=== PATIENT | male | born 1955 | race Caucasian/White ===

== ENCOUNTER → 2016-10-03 | Outpatient (CLI) | payer OTHER ==
[~2016-10-03] MED LIST: ALEVE220 MG PO; AMITRIPTYLINE H10 M3 PO; ASPIRIN325 PO; DEPO-TESTO100 MG/1 M IM; HYDROCHLOROTHIA25 M2 PO; HYTRIN 5 M5 MG/1 CAP PO; MUCINEX TA600 MG/TA2 PO; NORVASC5 MG PO; PRADAXA150 MG PO; SORINE 80 MG TA80 M1 PO; TYLENOL325 MG PO; VERAPAMIL SR240 MG PO
[2016-10-03 09:23] LABS: HEMATOCRIT 46.8 % (42.0-52.0); MCH 30.8 pg (26.0-34.0); MCHC 34.3 % (28.0-37.0); MCV 89.7 fL (80.0-100.0); RBC 5.21 mil/uL (4.50-6.00); RDW 14.5 % (10.5-14.5)
[2016-10-03 09:34] LABS: ANION GAP 10 mmol/L (7-16); BUN 19 mg/dL (7-18); CALCIUM 9.4 mg/dL (8.5-10.1); CHLORIDE 105 mmol/L (98-107); CO2 31 mmol/L (21-32); GLUCOSE 108 mg/dL (70-99); POTASSIUM 4.4 mmol/L (3.5-5.1); SODIUM 146 mmol/L (136-145)
[2016-10-03 09:37] LABS: ALBUMIN 4.3 g/dL (3.4-5.0); ALKALINE PHOSPHATASE 87 U/L (46-116); SGOT < 5 U/L (15-37); SGPT 40 U/L (30-65); TOTAL BILIRUBIN 0.5 mg/dL (<0.1-1.0); TOTAL PROTEIN 7.6 g/dL (6.4-8.2)
== END ==
LOC: CAT 08:54
PROVIDERS: Internal Medicine Cardiovascular Disease
DX: I48.91 Unspecified atrial fibrillation (principal)

== ENCOUNTER 2016-10-07 06:35 | Observation (INO) | payer OTHER ==
[~2016-10-07] VITALS: Ht 185.4 cm; Wt 160.4 kg
--- NOTE | ~2016-10-07 | H ---
[facility] [address] [address] HISTORY AND PHYSICAL Name: JULIETH BATISTA Room #: 214-P [facility] Elliot Cisneros#: [id number] Admission: 10/07/16 Attend Phys: Tera Mckeon MD Discharge: 10/08/16 Date of : 59 Report #: [id number] THIS REPORT FOR: //name// For History and Physical, please see office documentation/handwritten note in the patient's medical record. <ELECTRONICALLY SIGNED> By: Tera Mckeon MD 10/10/16 1054 1532 Tera Mckeon MD /jr
--- NOTE | ~2016-10-07 | P ---
[facility] [place] [address] PROCEDURE REPORT Name: JULIETH BATISTA Room #: 214-P [facility] Elliot Cisneros#: [id number] Admission: 10/07/16 Attend Phys: Tera Mckeon MD Discharge: 10/08/16 Date of : 59 Report #: [id number] THIS REPORT FOR: //name// CC: Rene Mckeon DATE OF SERVICE: 10/07/2016 PREOPERATIVE DIAGNOSIS: Paroxysmal atrial fibrillation. POSTOPERATIVE DIAGNOSES: 1. Paroxysmal atrial fibrillation. 2. Typical atrioventricular ronald reentrant tachycardia. PROCEDURE: SVT ablation. HISTORY: The patient is a 60-year-old with a history of obesity, hypertension who has had episode of atrial fibrillation, continues to have palpitations despite sotalol therapy. He is here for AFib ablation. ANESTHESIA: The patient underwent general anesthesia with no anesthesia related complications. DESCRIPTION OF PROCEDURE: The patient underwent informed consent. We discussed the details of the procedure including the risks, which include but are not limited to bleeding, infection, vascular damage, cardiac perforation as well as damage to the bad river band conduction system as well as stroke or PR. He understood these risks and was willing to proceed. The patient was brought to the EP laboratory in a fasting and nonsedated state and prepped and draped in a sterile fashion. Next, I injected 7 mL of lidocaine to the right groin region, obtained access to the right femoral vein times 3. I placed an 8-Macedonian, 9-Macedonian and 7-Macedonian short sheath. Under fluoroscopic guidance, I placed a decapolar catheter easily in the coronary sinus, however, this would fall out frequently, but eventually I was able to seat it nicely in the coronary sinus. Next, an intracardiac ultrasound catheter was placed into the right atrium. Next, I started taking images of the left atrium and the interatrial septum. Upon visualizing the interatrial septum, there was evidence of significant interatrial lipomatous hypertrophy. The septum was very very thick. There was a small thin area at the superior limbus , which was probably about 5 mm in size that was right at the junction at the roof of the left atrium. Next, the patient was systemically heparinized and I took an SL1 sheath and a [place] needle and attempted several sites to perform transseptal. Looking at this superior thin segment, I felt that this was going to result in a transseptal that could potentially result in me perforating the roof of the left atrium. I therefore looked for other regions along the superior third to middle [address] [address] PROCEDURE REPORT Name: LYNNEBENNIEJULIETH Daria Room #: 214-P [facility] Elliot Cisneros#: [id number] Admission: 10/07/16 Attend Phys: Tera Mckeon MD Discharge: 10/08/16 Date of : 59 Report #: [id number] third of the interatrial septum. At this site, I was able to cross with the [place] needle. However, I could not advance my SL1 sheath over a guidewire. Several more attempts were made and eventually I was able to cross with the dye later and my transseptal sheath was hooked at the groin and slightly across into the left atrium. Because of this, optimally placing my wire into one of the left-sided pulmonary veins was somewhat challenging. Eventually, I was able to get the guidewire to go into the left inferior pulmonary vein. I then exchanged my SL1 sheath for the cryo sheath. Several attempts were made to take the cryo sheath across this transseptal site. However, due to the thickness of the septum and due to the fact that the cryo sheath wanted to go at more of a superior direction, I was not able to cross the septum. I made multiple attempts and I felt with the guidewire in the left inferior, thus gave me the best approach, but unfortunately this was not working out. As such, I pulled my cryo sheath below the level of the heart. At this point, I decided to abandon performing an AFib ablation, but I decided to perform a basic EP study to see if there was any inducible atrial flutter or other arrhythmias that could serve as a cause of his atrial fibrillation. At baseline prior to the AFib ablation, the patient was in sinus rhythm with a sinus cycle length of 1020 milliseconds, AZ interval 133 milliseconds, QRS duration 80 milliseconds, QT interval 500 milliseconds. Next, I removed the Ice catheter from the atrium. I then placed 1 quadripolar catheter at the HRA position and 1 quadripolar catheter in the RV position. Next, a basic EP study was performed. Atrial burst pacing was performed and AV block was noted at 350 milliseconds and it became evident that there appeared to be a slow pathway as there was a very long AZ interval with atrial pacing. Next, a single extrastimuli were delivered and atrial ERP was noted at 280 milliseconds at a [address] cycle length. Ventricular pacing was performed and VA conduction was both midline and decremental. Next, I delivered dual AV ronald extrastimuli and at 500/310 milliseconds, the patient went into supraventricular tachycardia with a tachycardia cycle length of 410 milliseconds, the septal VA time of 20 milliseconds. I performed ventricular entrainment and there was a VAHV response consistent with typical AV ronald reentrant tachycardia. Given this finding, it is possible that the patient had SVT as a trigger for his episodes of atrial fibrillation. Therefore, I decided to go head and ablate this. A 3D mapping and ablation. Next, I exchanged my HRA catheter for a catheter and sheath for an SR0 and 4 mm [employer] Martinez ablation catheter. Next, I created a detailed 3D geometry of the right atrium with specific emphasis of the slow pathway, His bundle region and coronary sinus ostium. Next, I performed ablation at 50 parsons and 55 degrees. The first lesion resulted in no junctional beats. The second ablation lesion, which was slightly higher resulted in 50-60 seconds of slow junctional beats, at around 60-70 beats per minute. These junctional beats persisted for a [facility] [address] [place] [address] PROCEDURE REPORT Name: LYNNEJULIETH Room #: 214-P [facility] Elliot Maurice.#: [id number] Admission: 10/07/16 Attend Phys: Tera Mckeon MD Discharge: 10/08/16 Date of : 59 Report #: [id number] total of a minute post ablation. As such, I decided to perform repeat EP testing. POST-ABLATION FINDINGS: Post-ablation AV block was noted at 350 milliseconds. Atrial ERP was noted at 290 milliseconds at a [address] cycle length. Now, when I delivered dual AV ronald echoes, there was no further inducible SVT. There were occasional single AV ronald echoes. We tested for a period of 20 minutes and he was now rendered noninducible. Post-ablation, the patient was in sinus rhythm with a sinus cycle length of 975 milliseconds, AZ interval 160 milliseconds, QRS duration 80 milliseconds, QT interval 445 milliseconds. As such, all catheters and sheaths were pulled. Hemostasis was obtained. The patient awoke neurologically and hemodynamically intact. The patient did received protamine prior to sheath pulls. CONCLUSIONS: 1. Unsuccessful ablation of atrial fibrillation due to severe lipomatous hypertrophy of the interatrial septum. 2. Successful ablation of typical atrioventricular ronald reentrant tachycardia. 3. Normal SA ronald function. 4. Normal AV ronald function. 5. Normal His-Purkinje function. 6. No other inducible arrhythmias on EP study. <ELECTRONICALLY SIGNED> By: Tera Mckeon MD 10/09/16 0831 1535 1835 Tera Mckeon MD /nt
[~2016-10-07 06:35] MED LIST changes: -ALEVE220 MG PO; -ASPIRIN325 PO; -HYDROCHLOROTHIA25 M2 PO; -NORVASC5 MG PO
[2016-10-07] MEDS ORDERED: NORVASC5 MG PO (06:56)
[2016-10-07] MEDS ORDERED: ASPIRIN325 PO (06:56)
[2016-10-07] MEDS ORDERED: ALEVE220 MG PO (06:56)
[2016-10-07] MEDS ORDERED: HYDROCHLOROTHIA25 M2 PO (07:00)
[2016-10-07 07:09] VITALS: BP 146/76
[2016-10-07 07:31] LABS: ABSOLUTE NEUTROPHILS 7.2 thou/uL (1.4-8.2); BASOPHILS 0.5 % (0.0-2.0); EOSINOPHILS 4.6 % (0.0-3.0); HEMATOCRIT 45.3 % (42.0-52.0); HEMOGLOBIN 15.7 gm/dL (14.0-18.0); LYMPHOCYTES 15.3 % (24.0-44.0); MCH 30.9 pg (26.0-34.0); MCHC 34.6 % (28.0-37.0); MCV 89.2 fL (80.0-100.0); MONOCYTES 7.9 % (1.0-8.0); PLATELET COUNT 183 thou/uL (150-400); POLYS 71.7 % (36.0-66.0); RBC 5.08 mil/uL (4.50-6.00); RDW 14.1 % (10.5-14.5)
[2016-10-07 07:33] LABS: MANUAL DIFF NO
[2016-10-07 07:42] LABS: ANION GAP 10 mmol/L (7-16); BUN 18 mg/dL (7-18); CHLORIDE 102 mmol/L (98-107); CO2 28 mmol/L (21-32); GLUCOSE 112 mg/dL (70-99); POTASSIUM 4.1 mmol/L (3.5-5.1); SODIUM 140 mmol/L (136-145)
[2016-10-07 07:47] LABS: ALBUMIN 3.9 g/dL (3.4-5.0); ALKALINE PHOSPHATASE 83 U/L (46-116); SGOT < 5 U/L (15-37); SGPT 36 U/L (30-65); TOTAL BILIRUBIN 0.5 mg/dL (<0.1-1.0); TOTAL PROTEIN 7.2 g/dL (6.4-8.2)
[2016-10-07 07:49] LABS: APTT 31.7 Seconds (24.5-32.8); PROTIME 10.6 Seconds (9.3-11.4)
[2016-10-07 16:04] VITALS: BP 117/64
[2016-10-07 20:29] VITALS: BP 155/84
[2016-10-08 00:13] VITALS: BP 142/72
[2016-10-08 04:01] VITALS: BP 102/56
[2016-10-08 07:06] LABS: HEMATOCRIT 43.3 % (42.0-52.0); HEMOGLOBIN 15.1 gm/dL (14.0-18.0); MCHC 34.9 % (28.0-37.0); MCV 88.9 fL (80.0-100.0); RBC 4.87 mil/uL (4.50-6.00); RDW 14.4 % (10.5-14.5); WBC 10.9 thou/uL (4.0-11.0)
[2016-10-08 07:15] VITALS: BP 124/64
[2016-10-08 07:20] VITALS: BP 124/64
== END 2016-10-08 11:45 | disposition home or self-care (01) ==
LOC: CATH 06:35 → 2N 14:42
PROVIDERS: Internal Medicine Cardiovascular Disease
DX: I48.0 Paroxysmal atrial fibrillation (principal); I47.1 Supraventricular tachycardia; I10 Essential (primary) hypertension; Z79.899 Other long term (current) drug therapy; Z79.82 Long term (current) use of aspirin; E66.01 Morbid (severe) obesity due to excess calories
CPT/HCPCS: 62110; 62900; 70005

== ENCOUNTER → 2016-10-25 | Outpatient (CLI) | payer OTHER ==
[~2016-10-25] MED LIST changes: +ALEVE220 MG PO; +ASPIRIN325 PO; +HYDROCHLOROTHIA25 M2 PO; +NORVASC5 MG PO
--- NOTE | ~2016-10-25 | SLE ---
[facility] [address] [address] POLYSOMNOGRAPHY STUDY Name: JULIETH BATISTA Room #: REG [facility]#: [id number] Admission: 10/25/16 Attend Phys: Josefina Cobb MD Discharge: Date of : 59 Report #: [id number] THIS REPORT FOR: //name// CC: Conrad Schmitt MD INDICATIONS: A 60-year-old with daytime somnolence, fatigue, obesity, atrial fibrillation and positive snoring. COMMENTS: BASELINE PORTION: Total recording time 192 minutes. RESPIRATORY SUMMARY: Central apnea 1, mixed apnea 1, obstructive apnea 152 and hypopnea 16. Apnea-hypopnea index of 92 events per sleep hour. No REM sleep seen. Left lateral 91, right lateral 104 events per sleep hour. Periodic limb movement with arousal index 0.5 events per sleep hour. Low oxygen saturation 72%, spending 27% of recording time less than 90%. CPAP TITRATION: Titrated at 9, 11, 13, 14, 16, 18, and 19 cm of water pressure. At 14 cm of water pressure, the patient was seen for 27 minutes, of which 11 minutes were in REM sleep. There was 1 central apnea, 12 hypopneas, apnea-hypopnea index of 26 events per sleep hour. Low oxygen saturation 78%. At 19 cm of water pressure, the patient was seen for 16 minutes. There were 14 central apneas, 1 hypopnea and apnea-hypopnea index of 57 events per sleep hour. Low oxygen saturation 93%. At 16 cm of water pressure, the patient was seen for 25 minutes, of which 4 minutes were in REM sleep. Twelve central apneas, 12 hypopneas, apnea-hypopnea index of 57 events per sleep hour and low sat of 91%. IMPRESSION: 1. Severe obstructive sleep apnea, G47.33. 2. Periodic limb movement with arousal index of 0.5 events per sleep hour. 3. Arrhythmias noted. 4. A definite CPAP setting was not established and central events developed during study titration. SUGGESTIONS: 1. In addition to the specific therapy, the patient should be cautioned regarding driving or operating dangerous machinery unless fully alert. TSH and weight loss per Dr. Schmitt, Dr. Omer and Dr. Mckeon. 2. The usual sleep apnea suggestions are recommended. 3. May consider an auto-titrating CPAP between 15 and 20 cm of water pressure. 4. A BiPAP titration night is recommended, starting at an IPAP of 12, EPAP of 6. This may need to be changed to a BiPAP S/T should central apneas occur. 5. If signs and symptoms not improved with therapy, [place] [address] POLYSOMNOGRAPHY STUDY Name: JULIETH BATISTA Room #: REG [facility] Amelia#: [id number] Admission: 10/25/16 Attend Phys: Josefina Cobb MD Discharge: Date of : 59 Report #: [id number] recommended. Please do not hesitate to contact me if I may be of further assistance. <ELECTRONICALLY SIGNED> By: Josefina Cobb MD 11/10/16 2316 0841 0910 Josefina Cobb MD /nt
== END ==
LOC: SLEEPLAB 15:02 → EDSTATUS 17:15 → SLEEPLAB 17:15 → EDSTATUS 10-28 10:34
DX: G47.33 Obstructive sleep apnea (adult) (pediatric) (principal)

== ENCOUNTER → 2016-12-31 | Outpatient (CLI) | payer OTHER ==
[~2016-12-31] VITALS: Ht 182.9 cm; Wt 158.8 kg
[~2016-12-31] MED LIST changes: +LASIX 40 MG TAB40 M2 PO; +POTASSIUM20 PO
--- NOTE | ~2016-12-31 | P ---
[facility] [address] PROCEDURE REPORT Name: JULIETH BATISTA Room #: REG Rush Cisneros#: [id number] Admission: 12/31/16 Attend Phys: Tera Mckeon MD Discharge: Date of : 59 Report #: [id number] THIS REPORT FOR: //name// CC: Rene Mckeon PREOPERATIVE DIAGNOSIS: Atrial fibrillation. POSTOPERATIVE DIAGNOSIS: Atrial fibrillation. DESCRIPTION OF PROCEDURE: The patient was presented to the procedure in a fasting and nonsedated state. He was then sedated by the Anesthesiology service. Once he was sedated, the 200 joule synchronized cardioversion was performed with successful gnosticism of sinus rhythm. There were no complications. <ELECTRONICALLY SIGNED> By: Tera Mckeon MD 01/24/17 1527 1149 1842 Tera Mckeon MD /nt
--- NOTE | ~2016-12-31 | EKG ---
[address] [address] ELECTROCARDIOGRAM REPORT Name: JULIETH BATISTA [facility] [id number] Admission: 12/31/16 Attend Phys: Tera Mckeon MD Discharge: Date of : 59 Report #: [id number] THIS REPORT FOR: //name// [facility] Test Date: 2016-12-31 Test Time: 11:18:38 Pat Name: JULIETH BATISTA Department: Room: Gender: M Personal Insurance Advisor: cara : 1955 Requested By: Tera Mckeon Order Number: [id number] MD: Christian Holder Measurements Intervals [place] Rate: 56 P: 7 MN: 175 QRS: -29 QRSD: 105 T: 7 QT: 484 QTc: 468 Interpretive Statements Sinus bradycardia Left atrial enlargement Borderline left axis deviation No previous ECG available for comparison Electronically Signed On 01-02-2017 7:35:59 CDT by Christian Holder [email or web address] <ELECTRONICALLY SIGNED> By: Christian Holder MD, [facility] 01/02/17 0735 1118 17 Christian Holder MD, FACC /EPI
[2016-12-31 10:31] VITALS: BP 128/92
[2016-12-31 10:31] LABS: HEMATOCRIT 46.4 % (42.0-52.0); HEMOGLOBIN 15.9 gm/dL (14.0-18.0); MCH 30.7 pg (26.0-34.0); MCHC 34.4 g/dL (28.0-37.0); MCV 89.4 fL (80.0-100.0); RBC 5.19 mil/uL (4.50-6.00); RDW 13.8 % (10.5-14.5); WBC 7.3 thou/uL (4.0-11.0)
[2016-12-31 10:40] LABS: CALCIUM 9.3 mg/dL (8.5-10.1); CREATININE 1.1 mg/dL (0.7-1.3); POTASSIUM 3.6 mmol/L (3.5-5.1)
[2016-12-31 10:45] LABS: INR 1.1; PROTIME 11.8 Seconds (9.3-11.4)
== END ==
LOC: CATH 07:37
PROVIDERS: Internal Medicine Cardiovascular Disease
DX: I48.91 Unspecified atrial fibrillation (principal)
CPT/HCPCS: 62110; 62900

== ENCOUNTER → 2017-01-04 | Outpatient (CLI) | payer OTHER ==
--- NOTE | ~2017-01-04 | SLE ---
[facility] [place] [address] POLYSOMNOGRAPHY STUDY Name: JULIETH BATISTA JEFERSON [facility] [id number] Admission: 01/04/17 Attend Phys: Josefina Cobb MD Discharge: Date of : 59 Report #: [id number] THIS REPORT FOR: //name// CC: Josefina Schmitt DATE OF SERVICE: 01/04/2017 HISTORY: The patient with history of obstructive sleep apnea, intolerant to CPAP, continued to have events on BiPAP. A BiPAP S/T was ordered. COMMENTS: The patient was titrated IPAP of 14, EPAP 6; IPAP of 16, EPAP of 6; IPAP of 17, EPAP of 8; IPAP of 18, EPAP of 8 and IPAP of 19, EPAP of 8. At an IPAP of 17, EPAP of 8, with a respiratory rate 12, inspiratory time of 2.5, the patient was seen for 143 minutes of which 32 minutes were in REM sleep. Two Central apneas, 26 hypopneas, apnea-hypopnea index of 11.7 events per sleep hour, low sat of 84%. At an IPAP of 19, EPAP of 8, rate of 12, inspiratory time 2.5, the patient was seen for 15 minutes of which 3 minutes were in REM sleep. There were 4 hypopneas, apnea-hypopnea index of 15.6 events per sleep hour, low sat of 93%. IMPRESSION: 1. Obstructive sleep apnea/hypopnea, G47.33. 2. Intolerant to CPAP and BiPAP was not effective by report. 3. Periodic limb movement with arousal index throughout the night was 1.1. SUGGESTIONS: 1. In addition to specific therapy, the patient should be cautioned regarding driving or operating dangerous machinery unless fully alert. The patient should be cautioned regarding the use of respiratory depressants. 2. Weight loss and TSH recommended. 3. Oral appliance or appropriate surgery may be considered. 4. A trial of BiPAP S/T rate of 12, inspiratory time of 2.5, IPAP of 19, EPAP of 8 is initially recommended. Once the patient is acclimated to this, further evaluation recommended. May attempt to increase IPAP pressure should he continue to have hypopneas on download. 5. If signs and symptoms not improved with therapy, further evaluation is recommended. Please do not hesitate to contact me if I may be of further assistance. <ELECTRONICALLY SIGNED> By: Josefina Cobb MD 01/07/17 1035 1257 1357 Josefina Cobb MD /nt
== END ==
LOC: SLEEPLAB 07:29
DX: G47.33 Obstructive sleep apnea (adult) (pediatric) (principal)